=== PATIENT | female | born 1965 | race Caucasian/White ===

== ENCOUNTER → 2018-09-27 13:57 | Outpatient (CLI) | payer MEDICAID, SELFPAY ==
[2018-09-27 09:44] VITALS: BMI 23.9
[2018-09-27 16:59] LABS: Chlamydia Trachomatis by PCR Negative (Negative); Neisserai gonorrhoeae by PCR Negative (Negative); Probe Check PASS; Sample Adequacy Control PASS; Specimen Processing Control PASS
== END ==
PROVIDERS: Referring Provider Physician Assistant; Visit Provider Physician Assistant
DX: N89.8 Other specified noninflammatory disorders of vagina (principal)
CPT/HCPCS: 87491; 87591